=== PATIENT | female | born 1940 | race Caucasian/White ===

== ENCOUNTER 2021-09-09 18:16 | Emergency (ER) | payer MEDICARE ==
--- NOTE | 2021-09-09 20:15 | EDM.PDOC ---
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), 100 mg daily, she is not sure of the name, unable to find it in [facility] chart (her name does not pull up) Left Hand Pain Score (Numeric/FACES): 3 Past Medical History - Infectious Disease History Infectious Disease History: Reports: MRSA Social & Family History - Family History Family Medical History: Unobtainable - Tobacco Use Tobacco Use Status *Q: Never Tobacco User - Caffeine Use Caffeine Use: Reports: None - Recreational Drug Use Recreational Drug Use: No ED ROS GENERAL - Review of Systems Review Of Systems: See Below Constitutional: Reports: No Symptoms HEENT: Reports: No Symptoms Respiratory: Reports: No Symptoms Cardiovascular: Reports: No Symptoms Endocrine: Reports: No Symptoms GI/Abdominal: Reports: No Symptoms : Reports: No Symptoms Musculoskeletal: Reports: No Symptoms Skin: Reports: Wound Neurological: Reports: No Symptoms Psychiatric: Reports: No Symptoms Hematologic/Lymphatic: Reports: No Symptoms Immunologic: Reports: No Symptoms ED EXAM, SKIN/RASH Exam: See Below Exam Limited By: No Limitations General Appearance: Alert, WD/WN, No Apparent Distress Respiratory/Chest: No Respiratory Distress Skin: Other (left hand lac, see below) Comments: FROM all fingers, sensation intact, no visible tendons, v-shaped skin lac a total of 8 cm, there is a 3 cm lac in the muscle, 3-0 Vicryl x 2 used to close muscle, 4-0 Ethilon x ~5 plus 3-0 Vicryl (when Ethilon ran out) x ~5 used to close skin, 1% lido with epi with #30 needle used with complete analgesia, cleaned x 12 with gauze and NS, no fb's, good apposition of margins, should heal well Course - Vital Signs Last Recorded V/S: Last Vital Signs Temp 36.8 C 09/09/21 18:20 Pulse 60 09/09/21 18:20 Resp 20 09/09/21 18:20 BP 151/60 H 09/09/21 18:20 Pulse Ox 97 09/09/21 18:20 Departure - Departure Time of Disposition: 20:04 Disposition: Home, Self-Care 01 Clinical Impression: Laceration of left hand - Discharge Information *PRESCRIPTION DRUG MONITORING PROGRAM REVIEWED*: Not Applicable *COPY OF PRESCRIPTION DRUG MONITORING REPORT IN PATIENT [facility]: Not Applicable Instructions: Laceration Care, Adult Referrals: PCP,Not In Area [Primary Care Provider] - Additional Instructions: Increase your antibiotic to 100 mg one tab 2 times a day for 3 days, then resume at one tab daily. Keep clean and dry and covered with a dressing. While infection is unlikely, it is still possible. See a physician the same day for any increase in redness, swelling, pain, warmth, fever or drainge. See your doctor in 5 days to remove sutures. Sepsis Event Note (ED) - Evaluation Sepsis Screening Result: No Definite Risk - Focused Exam Vital Signs: Vital Signs Temp Pulse Resp BP Pulse Ox 09/09/21 18:20 36.8 C 60 20 151/60 H 97
--- NOTE | 2021-09-10 10:32 | PCM.SN.2 ---
- Free Text/Narrative Note: Patient was not seen by me but by Dr Paredes. Time Documentation
== END 2021-09-09 20:28 | disposition home or self-care (01) ==
LOC: FB.ED 18:16
DX: S61.412A Laceration without foreign body of left hand, initial encounter (principal); W54.8XXA Other contact with dog, initial encounter
CPT/HCPCS: 12044; 99282-25